=== PATIENT | female | born 1990 | race American Indian/Alaskan Native ===

== ENCOUNTER 2020-07-16 22:33 | Emergency (ER) | payer OTHER ==
[2020-07-16 22:52] VITALS: BP 120/73
--- NOTE | 2020-07-16 23:49 | Emergency Department Report ---
ED Laceration HPI - HPI Chief Complaint: Wound/Laceration Stated Complaint: RT HAND LACERATION Time Seen by Provider: 07/16/20 23:30 Location: Upper Extremity Severity: mild, moderate Tetanus Status: Up to Date Laceration Symptoms: Yes Pain, No Foreign Body Sensation, No Numbness, No Weakness Other History: laceration to right 5th digit while cleaning a glass that broke and cut finger ED Review of Systems ROS: Stated complaint: RT HAND LACERATION Other details as noted in HPI Comment: All other systems reviewed and negative ED Past Medical Hx - Past Medical History Previous Medical History?: No - Surgical History Past Surgical History?: Yes Additional Surgical History: - Social History Smoking Status: Never Smoker Substance Use Type: None Laceration Physical Exam - Exam General: Vital signs noted. No distress. Alert and acting appropriately. Wound Length (cm): 5 Laceration Location: Upper Extremity Full Body Front + Back: 1 - dorsum if 5th digit flap like laceration 4.5 cm Laceration Exam: Yes Normal Distal CMS, No Foreign Body, No Exposed Tendon, Vessel, or Nerve, No Tendon Injury (full rom. cap refillbrisk) ED Course Vital Signs 07/16/20 22:49 Temperature 97.5 F L Pulse Rate 84 Respiratory 16 Rate Blood Pressure 120/73 O2 Sat by Pulse 97 Oximetry - Laceration /Wound Repair Right Finger Wound Location: upper extremity Wound Length (cm): 4 Wound's Depth, Shape: linear Betadine Prep?: Yes Anesthesia: 1% Lidocaine Volume Anesthetic (ccs): 4 Wound Debrided: minimal Wound Repaired With: sutures Suture Size/Type: 4:0 Number of Sutures: 7 Sterile Dressing Applied?: Yes Critical care attestation.: If time is entered above; I have spent that time in minutes in the direct care of this critically ill patient, excluding procedure time. ED Disposition Clinical Impression: Laceration, Laceration of finger Disposition: DC-01 TO HOME OR SELFCARE Is pt being admited?: No Does the pt Need Aspirin: No Condition: Stable Instructions: Laceration Care, Adult, Sutured Wound Care Additional Instructions: f/u in 10 days to be evaluated for possible suture removal Referrals: KORY THOMASREPLACED BY [facility] MD TOMASZ [Primary Care Provider] - 3-5 Days
== END 2020-07-16 23:58 | disposition home or self-care (01) ==
LOC: ED 22:33
DX: S61.216A Laceration without foreign body of right little finger without damage to nail, initial encounter (principal); Z98.890 Other specified postprocedural states; W45.8XXA Other foreign body or object entering through skin, initial encounter; Y93.89 Activity, other specified; Y92.89 Other specified places as the place of occurrence of the external cause; Y99.8 Other external cause status

== ENCOUNTER 2021-09-18 13:53 | Emergency (ER) | payer OTHER ==
[2021-09-18 15:23] VITALS: BP 118/74
--- NOTE | 2021-09-18 16:08 | Emergency Department Report ---
ED HPI - General Chief complaint: Urogenital-Female Stated complaint: POSSIBLE MISCARRIAGE/CRAMP BLEEDING Source: patient Mode of arrival: Ambulatory Limitations: No Limitations - History of Present Illness Initial comments: 30-year-old female presents to the ED complaining of vaginal bleeding. Patient states that she took a home test that shows a positive test this week. Patient states last menstrual cycle Aug. Patient 3 Para A 1. Patient states that she schedule a appointment to see INFECTION PREVENTIONIST for next week. States using 1 pad per hour. Patient is alert and oriented x3. No acute distress noted. No ill appearance noted. Denies any abdominal cramping at present, denies any fever chills nausea vomiting. MD Complaint: vaginal bleeding -: This morning Associated symptoms: vaginal bleeding :: Yes OB History - Previous Pregnancies: miscarriage - Related Data : 3 Para: 1 Ab: 1 Allergies Allergy/AdvReac Type Severity Reaction Status Date / Time No Known Allergies Allergy Unverified 07/16/20 22:59 ED Review of Systems ROS: Stated complaint: POSSIBLE MISCARRIAGE/CRAMP BLEEDING Other details as noted in HPI Constitutional: denies: chills, fever Eyes: denies: eye pain, eye discharge, vision change ENT: denies: ear pain, throat pain Respiratory: denies: cough, shortness of breath, wheezing Cardiovascular: denies: chest pain, palpitations Endocrine: no symptoms reported Gastrointestinal: denies: abdominal pain, nausea, diarrhea Genitourinary: denies: urgency, dysuria, discharge Musculoskeletal: denies: back pain, joint swelling, arthralgia Skin: denies: rash, lesions Neurological: denies: headache, weakness, paresthesias Psychiatric: denies: anxiety, depression Hematological/Lymphatic: denies: easy bleeding, easy bruising ED Past Medical Hx - Past Medical History Previous Medical History?: Yes Additional medical history: miscarraige - Surgical History Additional Surgical History: - Social History Smoking Status: Never Smoker Substance Use Type: None ED Physical Exam - General Limitations: No Limitations General appearance: alert, in no apparent distress - Head Head exam: Present: atraumatic, normocephalic - Eye Eye exam: Present: normal appearance - ENT ENT exam: Present: mucous membranes moist - Neck Neck exam: Present: normal inspection - Respiratory Respiratory exam: Present: normal lung sounds bilaterally. Absent: respiratory distress - Cardiovascular Cardiovascular Exam: Present: regular rate, normal rhythm. Absent: systolic murmur, diastolic murmur, rubs, gallop - GI/Abdominal GI/Abdominal exam: Present: soft, normal bowel sounds - Extremities Exam Extremities exam: Present: normal inspection - Back Exam Back exam: Present: normal inspection - Neurological Exam Neurological exam: Present: alert, oriented X3 - Psychiatric Psychiatric exam: Present: normal affect, normal mood - Skin Skin exam: Present: warm, dry, intact, normal color. Absent: rash ED Course Vital Signs 09/18/21 15:22 Temperature 98.7 F Pulse Rate 79 Respiratory 14 Rate Blood Pressure 118/74 [Left] O2 Sat by Pulse 100 Oximetry ED Medical Decision Making - Lab Data Result diagrams: 09/18/21 16:15 09/18/21 16:15 - Medical Decision Making 30-year-old female presents to the ED complaining of vaginal bleeding. Patient states that she took a home test that shows a positive test this week. Patient states last menstrual cycle Aug. Patient 3 Para A 1. Patient states that she schedule a appointment to see INFECTION PREVENTIONIST for next week. States using 1 pad per hour. Patient is alert and oriented x3. No acute distress noted. No ill appearance noted. Denies any abdominal cramping at present, denies any fever chills nausea vomiting. Patient left prior to UA results and discharge. Critical care attestation.: If time is entered above; I have spent that time in minutes in the direct care of this critically ill patient, excluding procedure time. ED Disposition Clinical Impression: Vaginal bleeding, Acute urinary tract infection Disposition: 07 LEFT AWOL/ELOPED Is pt being admited?: No Does the pt Need Aspirin: No Condition: Stable Referrals: HARLEY BOLAND MD [Primary Care Provider] - 3-5 Days
[2021-09-18 16:42] LABS: Basophils # (Auto) 0.1 K/mm3 (0.0-0.1); Basophils % (Auto) 0.7 % (0.0-1.8); Eosinophils # (Auto) 0.1 K/mm3 (0.0-0.4); Eosinophils % (Auto) 1.3 % (0.0-4.3); Hematocrit 35.3 % (30.3-42.9); Hemoglobin 11.1 gm/dl (10.1-14.3); Lymphocytes # (Auto) 2.1 K/mm3 (1.2-5.4); Mean Corpuscular HGB Conc 32 % (30-34); Mean Corpuscular Volume 83 fl (79-97); Monocytes # (Auto) 0.3 K/mm3 (0.0-0.8); Monocytes % (Auto) 3.7 % (0.0-7.3); Platelet Count 210 K/mm3 (140-440); Red Blood Count 4.22 M/mm3 (3.65-5.03); Red Cell Distribution Width 14.6 % (13.2-15.2)
[2021-09-18 16:53] LABS: Alanine Aminotransferase 11 units/L (7-56); Albumin 4.6 g/dL (3.9-5); BUN/Creatinine Ratio 18; Blood Urea Nitrogen 14 mg/dL (7-17); Calcium 9.7 mg/dL (8.4-10.2); Hemolysis Index 11
[2021-09-18 18:08] LABS: Bilirubin,Urine NEG (Negative); Blood,Urine LG (Negative); Color,Urine Yellow (Yellow); Mucus,Urine FEW /HPF; Urobilinogen,Urine < 2.0 mg/dL (<2.0)
[2021-09-18 18:32] LABS: RBC,Urine > 182.0 /HPF (0.0-6.0)
== END 2021-09-18 18:45 | disposition left against medical advice (07) ==
LOC: ED 13:53
DX: O20.9 Hemorrhage in early pregnancy, unspecified (principal); O23.41 Unspecified infection of urinary tract in pregnancy, first trimester; N39.0 Urinary tract infection, site not specified; Z3A.01 Less than 8 weeks gestation of pregnancy; Z98.890 Other specified postprocedural states
CPT/HCPCS: 36415; 80053; 81001; 84702; 85025; 86900; 86901; 87086; 99283